=== PATIENT | female | born 1990 | race Caucasian/White ===

== ENCOUNTER 2023-02-02 06:50 | Emergency (ER) | payer OTHER, SELFPAY ==
[2023-02-02 06:51] VITALS: BP 112/67; PULSE 80; RESP 18; TEMP 37; O2SAT 100
--- NOTE | 2023-02-02 07:08 | PC.NURSE ---
Patient ambulated without difficulty to bathroom. Pt report given to next shift, YESENIA Cuello assuming care.
--- NOTE | 2023-02-02 07:14 | ED.FEMALEGU ---
HPI - Female Genitourinary General Chief complaint: Urogenital-Female Stated complaint: Urogenital Time Seen by Provider: 02/02/23 07:09 Source: patient Mode of arrival: ambulatory Limitations: no limitations History of Present Illness HPI Narrative: 32-year-old female with no significant past medical history presents to the ER with a 3 day history of -- dysuria. no hematuria -- lower back pain /right flank pain without any radiation. No fever or chills LMP 3 days ago MD elicited complaint: dysuria Onset (ago): day(s) ( symptoms started 3 days ago.) Severity: mild Vaginal discharge: none Vaginal bleeding: none Urinary symptoms: Dysuria, Urgency and Frequency Exacerbating factors: none Relieving factors: none Associated symptoms: denies other symptoms Treatment prior to arrival: none Date of Last Menstrual Period: 01/30/23 Related Data : 1 Para: 1 Home Medications Medication Instructions Recorded Confirmed Bacillus coagulans 10 billion cell See Rx Instructions .Route .COMPLEX 06/24/21 02/02/23 capsule,delayed release (Probiotic (B. coagulans)) multivitamin (Daily Multi-Vitamin 1 tablet PO DAILY 06/24/21 02/02/23 tablet) Allergies Allergy/AdvReac Type Severity Reaction Status Date / Time No Known Allergies Allergy Verified 02/02/23 07:11 Review of Systems Review of Systems: All systems reviewed & are unremarkable except as noted in HPI and below Constitutional: Constitutional: Reports as per HPI and Reports no additional constitutional complaints Eyes: Eyes: Reports as per HPI and Reports no additional eye complaints ENT: Reports system reviewed and no additional complaints, except as documented and Reports as per HPI Cardiovascular: Cardiovascular: Reports as per HPI and Reports no additional cardiovascular complaints Respiratory: Respiratory: Reports as per HPI and Reports no additional respiratory complaints Gastrointestinal: Gastrointestinal: Reports as per HPI and Reports no additional gastrointestinal complaints Genitourinary: Genitourinary: Reports no additional female genitourinary complaints, Reports nocturia and Reports urinary urgency Musculoskeletal: Musculoskeletal: Reports no additional musculoskeletal complaints and Reports as per HPI Integumentary/Breasts: Skin/Breast: Reports system reviewed and no additional complaints, except as docu and Reports as per HPI Neurologic: Reports system reviewed and no additional complaints, except as documented and Reports as per HPI Psychiatric: Psychiatric: Reports no additional psychiatric complaints and Reports as per HPI Endocrine: Endocrine: Reports no additional endocrine complaints and Reports as per HPI Hematologic/Lymphatic: Hematologic/Lymphatic: Reports no additional hematologic/lymphatic complaints and Reports as per HPI Allergic/Immunologic: Allergic/Immunologic: Reports no additional allergic/immunologic complaints and Reports as per HPI [facility] Past Medical History Medical History (Updated 02/02/23 @ 08:05 by Siva Pop MD) Vaginal delivery Surgical History Surgical History [place] teeth removed Family History Family History Grandparent Family history of malignant neoplasm of breast Social History Social History Smoking status: Never smoker Alcohol intake: never Substance use: never Exam Const: General: cooperative, healthy appearing and comfortable HENMT: Head: normal to inspection, normocephalic and atraumatic Ears: hearing grossly normal bilaterally and external ears normal Face and sinus: normal facial exam Mouth: Yes Normal oral and palatal mucosa present Throat: posterior oropharynx normal Eyes: General: appearance normal, both eyes and all related structures Neck: Neck: normal visual inspection, full ROM, no
[2023-02-02 07:20] LABS: Appearance Urine Slightly Cloudy (Clear); Bilirubin Urine Negative (Negative); Blood Urine 2+ (Negative); Color Urine Light Yellow (Yellow); Glucose Urine UA Negative (Negative); Ketones Urine Negative (Negative); Leukocyte Esterase Ur 3+ LEU/UL (Negative); Nitrate Urine Negative (Negative); Protein Urine Trace (Negative); Urobilinogen Urine 0.2 mg/dL (0.2-1.0)
[2023-02-02 07:22] LABS: Pregnancy On Board Control Positive; Urine Pregnancy Test Negative
[2023-02-02 07:26] LABS: Add Urine Microscopic? YES; Bacteria Urine 2+ /hpf; Squamous Epithelial Cell Urine Rare /hpf (Few); WBC Urine 21-50 /hpf (0-3)
[2023-02-02 08:05] VITALS: PULSE 64; RESP 100
--- NOTE | 2023-02-05 13:01 | PC.NURSE ---
Final urine culture report: Patient discharge on cipro 250mg 1 tablet q12h x 5 days, culture shows sensitivity to Cipro, no change needed per dr bay
== END 2023-02-02 08:15 | disposition home or self-care (01) ==
PROVIDERS: Emergency Provider Internal Medicine Critical Care Medicine; PCP Internal Medicine
DX: N39.0 Urinary tract infection, site not specified (principal)
CPT/HCPCS: 81001; 81025; 87077; 87086; 87088; 87186; 99283

== ENCOUNTER 2024-02-08 07:20 | Day surgery (SDC) | payer OTHER, SELFPAY ==
[2024-02-02 11:01] VITALS: BMI 20.7
[2024-02-02 11:50] VITALS: BMI 20.5
[2024-02-08 08:50] VITALS: BP 101/63; PULSE 81; RESP 16; TEMP 37.2; O2SAT 100
[2024-02-08] MEDS: LACTATED RINGERS 1,000 ML 150 ML IV CONT (09:01)
--- NOTE | 2024-02-08 09:18 | WPDHPUPDATE1 ---
History and Physical Update Update Date/Time: 02/08/24 09:18 History and Physical has been reviewed, including an updated exam of the patient. There are NO changes in the patient's condition. Risks, benefits, and alternatives have been discussed and questions answered. Patient agrees to proceed with procedure.
--- NOTE | 2024-02-08 09:39 | WPDANESEPPF ---
Anes - Initial Pre Proc Eval Procedure: Operation Date: 02/08/24 10:00 Proposed Procedures p Colonoscopy - Roberto Wilder MD Date/Time: 02/08/24 09:39 Surgeon: Roberto Wilder MD Pre Op Diagnosis: Diarrhea unspecified Patient Data Age: 33 Gender: F Height: 1.73 m Weight: 58.5 kg Last Vital Signs Temp 37.2 C 02/08/24 08:50 Pulse 81 02/08/24 08:50 Resp 16 02/08/24 08:50 BP 101/63 02/08/24 08:50 Pulse Ox 100 02/08/24 08:50 O2 Del Method Room Air 02/08/24 08:50 Allergies Allergy/AdvReac Type Severity Reaction Status Date / Time No Known Allergies Allergy Verified 02/08/24 08:40 Home Medications Medication Instructions Recorded Confirmed Type Bacillus coagulans 10 billion cell 10,000,000 cell PO DAILY 06/24/21 02/08/24 History capsule,delayed release (Probiotic (B. coagulans)) ascorbic acid (vitamin C) 500 mg 500 mg PO DAILY 02/02/24 02/08/24 History tablet ashwagandha extract 500 mg capsule 500 mg PO DAILY 02/02/24 02/08/24 History cholecalciferol (vitamin D3) 25 25 mcg PO DAILY 02/02/24 02/08/24 History mcg (1,000 unit) tablet (Vitamin D3) zinc 50 mg tablet 50 mg PO DAILY 02/02/24 02/08/24 History Patient hx anesthesia problems: none Family hx anesthesia problems: post op nausea/vomiting Results Review: All pre-operative results and documents have been reviewed as part of the pre-operative evaluation. [facility] Past Medical History Medical History Vaginal delivery Surgical History Surgical History [place] teeth removed Family History Family History Grandparent Family history of malignant neoplasm of breast Social History Social History Smoking status: Never smoker Alcohol intake: current Drinks per week: 6 Substance use: never Substance use type: does not use Lack of Transportation: No Lack of Food: Never True Current Housing: I Have Housing Concerned About Future Housing: No Difficulty Paying Gas/Electric Bills: No Difficulty Paying for Meds: No Currently Unemployed: No Living arrangements: with family Occupation/Education: occupation Gender identity (if verbalized by the patient): Female Sexual Orientation (if Verbalized by the Patient): Straight or Heterosexual Spiritual care concerns: No Anes - Eval Final PreProcedure Day of Procedure 02/08/24 09:39 Patient weight: normal Heart: regular rate and rhythm Lungs: clear to auscultation Airway: Mallampati scale class II Neurological: alert and oriented Last oral intake: >/= 8 hours ASA classification: I Emergent: no Anesthetic plan: proceed Anesthesia type and monitoring: general GIVS and standard monitoring Results Review: All pre-operative results and documents have been reviewed as part of the pre-operative evaluation. Informed Consent: The patient's anesthetic plan and its attendant risks and benefits were discussed with the patient/family/POA. Questions were solicited and answers provided to the satisfaction of the patient/family/POA.
[2024-02-08 10:20] VITALS: BP 91/55; PULSE 85; RESP 14; O2SAT 100
[2024-02-08 10:30] VITALS: BP 82/70; PULSE 78; RESP 14; O2SAT 100
[2024-02-08 10:40] VITALS: BP 99/65; PULSE 80; RESP 16; O2SAT 100
--- NOTE | 2024-02-08 11:43 | WPDANESPN ---
Anes - Prog Note Post-Op Date/Time: 02/08/24 11:43 Cardiovascular status: normal Respiratory status: normal Airway patency: baseline Mental status: baseline Post-Op hydration status: normal Vital Signs: Last Vital Signs Temp 37.2 C 02/08/24 08:50 Pulse 80 02/08/24 10:40 Resp 16 02/08/24 10:40 BP 99/65 L 02/08/24 10:40 Pulse Ox 100 02/08/24 10:40 O2 Del Method Room Air 02/08/24 10:40 Pain Score (VAS): 0 I/O: Intake & Output 02/07/24 02/08/24 02/08/24 23:59 07:59 15:59 Intake Total 750 Balance 750 Patient Feedback: Patient satisfied with anesthetic care.
== END 2024-02-08 10:51 | disposition home or self-care (01) ==
PROVIDERS: PCP Internal Medicine; Visit Provider Internal Medicine Gastroenterology
PROC: 0DJD8ZZ Inspection of Lower Intestinal Tract, Via Natural or Artificial Opening Endoscopic (ICD-10-PCS; CPT 45378; principal; 2024-02-08 10:00)
DX: R19.7 Diarrhea, unspecified (principal); K64.8 Other hemorrhoids
CPT/HCPCS: 45380

== ENCOUNTER 2024-02-08 10:17 | Outpatient (NON) | payer OTHER, SELFPAY | END 2024-02-08 10:18 | disposition home or self-care (01) | PROVIDERS: PCP Internal Medicine; Visit Provider Internal Medicine Gastroenterology | DX: R19.7 Diarrhea, unspecified (principal) | CPT/HCPCS: 88305 ==

== ENCOUNTER 2024-08-15 08:01 | Outpatient (CLI) | payer OTHER, SELFPAY ==
[2024-08-15 08:18] LABS: Hematocrit 37.7 % (35.0-49.0); Hemoglobin 12.7 g/dL (12.0-15.0); Mean Corpuscular HGB Conc 33.7 g/dL (32-36); Mean Corpuscular Hemoglobin 30.4 pg (27.0-31.0); Mean Corpuscular Volume 90.2 fL (78.0-102.0); Mean Platelet Volume 9.4 fl (9.2-11.8); Platelet Count Result 334 K/mm3 (150-420); Red Blood Count 4.18 M/mm3 (4.20-5.40); Red Cell Distribution Width 12.1 % (11.6-14.4); White Blood Count 4.5 K/mm3 (4.8-10.8)
[2024-08-15 08:52] LABS: Alanine Aminotransferase 23 U/L (14-59); Alkaline Phosphatase 59 U/L (46-116); Anion Gap 9 mmol/L (4-12); Aspartate Amino Transferase 14 U/L (15-37); Bilirubin,Total 0.4 mg/dL (0.00-1.00); Blood Urea Nitrogen 11 mg/dL (7-18); Carbon Dioxide 30 mmol/L (21-32); Chloride 101 mmol/L (98-108); Estimated Glomerular Filt Rate > 60; Glucose 87 mg/dL (70-99); Osmolality Calculated 288 mOsm/kg (285-295); Potassium 3.8 mmol/L (3.5-5.1); Sodium 140 mmol/L (136-145); Total Protein 7.4 g/dL (6.4-8.2)
[2024-08-15 08:57] LABS: Thyroid Stimulating Hormone Reflex 1.84 u/IU/mL (0.36-3.74)
[2024-08-15 08:58] LABS: CRP < 0.5 mg/dL (0.0-0.9)
[2024-08-15 09:28] LABS: Erythrocyte Sedimentation Rate 18 mm/hr (0-15)
[2024-08-15 12:09] LABS: Toxigenic C. Diff NEGATIVE (NEGATIVE)
[2024-08-19 03:34] LABS: Immunoglobulin A 225 mg/dL (47-310); TTG IGA AB <1.0 U/mL
== END 2024-08-15 08:02 | disposition home or self-care (01) ==
LOC: CHSLAB 08:03
PROVIDERS: PCP Internal Medicine; Visit Provider Nurse Practitioner
DX: K52.832 Lymphocytic colitis (principal); K52.9 Noninfective gastroenteritis and colitis, unspecified
CPT/HCPCS: 36415; 80053; 82784; 83516; 83993; 84443; 85027; 85652; 86140; 87045; 87269; 87427; 87449; 87493

== ENCOUNTER 2024-10-04 00:59 | Day surgery (SDC) | payer OTHER, SELFPAY ==
[2024-10-03 15:16] VITALS: BMI 20.4
[2024-10-04 13:40] VITALS: BP 109/59; PULSE 71; RESP 16; TEMP 36.3; O2SAT 99; BMI 19.8
[2024-10-04 13:45] LABS: BEDSIDEPREGUCG Negative (Negative)
[2024-10-04] MEDS: LACTATED RINGERS 1,000 ML 150 ML IV CONT (13:49)
--- NOTE | 2024-10-04 13:55 | WPDANESEPPF ---
Anes - Initial Pre Proc Eval Procedure: Operation Date: 10/04/24 15:00 Proposed Procedures p Flexible Sigmoidoscopy - Dk Gallego MD Date/Time: 10/04/24 13:55 Surgeon: Dk Gallego MD Pre Op Diagnosis: lymphocytic colitis, fecal abn, gastroenteritis Patient Data Age: 33 Gender: F Height: 1.73 m Weight: 59.1 kg Last Vital Signs Temp 36.3 C L 10/04/24 13:40 Pulse 71 10/04/24 13:40 Resp 16 10/04/24 13:40 BP 109/59 L 10/04/24 13:40 Pulse Ox 99 10/04/24 13:40 O2 Del Method Room Air 10/04/24 13:40 Allergies Allergy/AdvReac Type Severity Reaction Status Date / Time No Known Allergies Allergy Verified 10/04/24 13:36 Home Medications ?Medication ?Instructions ?Recorded ?Confirmed ?Type Bacillus coagulans 10 billion cell 10,000,000 cell PO DAILY 06/24/21 10/03/24 History capsule,delayed release (Probiotic (B. coagulans)) ascorbic acid (vitamin C) 500 mg 500 mg PO DAILY 02/02/24 10/03/24 History tablet ashwagandha extract 500 mg capsule 500 mg PO DAILY 02/02/24 10/03/24 History cholecalciferol (vitamin D3) 25 25 mcg PO DAILY 02/02/24 10/03/24 History mcg (1,000 unit) tablet (Vitamin D3) zinc 50 mg tablet 50 mg PO DAILY 02/02/24 10/03/24 History budesonide 3 mg 6 mg PO DAILY 10/03/24 10/04/24 History capsule,delayed,extended release Laboratory Tests 10/04/24 13:40 POC Urine HCG, Qual Negative (Negative) Patient hx anesthesia problems: none Family hx anesthesia problems: none Results Review: All pre-operative results and documents have been reviewed as part of the pre-operative evaluation. [facility] Past Medical History Medical History Vaginal delivery Surgical History Surgical History [place] teeth removed Family History Family History Grandparent Family history of malignant neoplasm of breast Social History Social History Smoking status: Never smoker Alcohol intake: current Drinks per week: 3 Substance use: never Substance use type: does not use Lack of Transportation: No Lack of Food: Never True Current Housing: I Have Housing Concerned About Future Housing: No Difficulty Paying Gas/Electric Bills: No Difficulty Paying for Meds: No Currently Unemployed: No Living arrangements: with family Occupation/Education: occupation Gender identity (if verbalized by the patient): Female Sexual Orientation (if Verbalized by the Patient): Straight or Heterosexual Spiritual care concerns: No Anes - Eval Final PreProcedure Day of Procedure 10/04/24 13:55 Patient weight: normal Heart: regular rate and rhythm Lungs: clear to auscultation Airway: Mallampati scale class II Neurological: alert and oriented Last oral intake: >/= 8 hours ASA classification: II Emergent: no Anesthetic plan: proceed Anesthesia type and monitoring: general GIVS and standard monitoring Results Review: All pre-operative results and documents have been reviewed as part of the pre-operative evaluation. Informed Consent: The patient's anesthetic plan and its attendant risks and benefits were discussed with the patient/family/POA. Questions were solicited and answers provided to the satisfaction of the patient/family/POA.
--- NOTE | 2024-10-04 14:00 | WPDHPUPDATE1 ---
History and Physical Update Update Date/Time: 10/04/24 14:00 History and Physical has been reviewed, including an updated exam of the patient. There are NO changes in the patient's condition. Risks, benefits, and alternatives have been discussed and questions answered. Patient agrees to proceed with procedure.
[2024-10-04 14:12] VITALS: BP 102/52; PULSE 80; RESP 15; O2SAT 100
[2024-10-04 14:22] VITALS: BP 98/65; PULSE 83; RESP 17; O2SAT 100
[2024-10-04 14:32] VITALS: BP 107/64; PULSE 72; RESP 19; O2SAT 100
== END 2024-10-04 14:34 | disposition home or self-care (01) ==
PROVIDERS: Anesthesiology; PCP Internal Medicine; Referring Provider Nurse Practitioner; Visit Provider Internal Medicine Gastroenterology
PROC: 0DJD8ZZ Inspection of Lower Intestinal Tract, Via Natural or Artificial Opening Endoscopic (ICD-10-PCS; CPT 45330; principal; 2024-10-04 15:00)
DX: Z09 Encounter for follow-up examination after completed treatment for conditions other than malignant neoplasm (principal); K51.814 Other ulcerative colitis with abscess; Z98.890 Other specified postprocedural states; Z80.3 Family history of malignant neoplasm of breast
CPT/HCPCS: 45331; 88305; J2003; J2704; J7120

== ENCOUNTER 2024-12-12 08:00 | Outpatient (CLI) | payer OTHER, SELFPAY ==
--- OUTSIDE RECORDS SUMMARY | 2024-12-12 08:09 | XMS_ITS | Clinical Summary ---
Author Organization [employer] [address] - [address] [facility] [address] [place] [address] Phone Care Team Providers Care Special Education Professor Name Role Phone Rebeca Brandon MD Primary Care Provider + Social History Tobacco Use Types Packs/Day Years Used Date Smoking Tobacco: Never Assessed Comments Unknown Sex and Gender Information Value Date Recorded Sex Assigned at Not on file Legal Sex Female 9:06 AM CDT Gender Identity Not on file Sexual Orientation Not on file Plan of Treatment Health Maintenance Due Date Last Done Comments DTAP/TDAP/TD VACCINES (1 - Tdap) 2008 HEPATITIS B VACCINES (1 of 3 - 19+ 3-dose series) 2008 CERVICAL CANCER SCREENING 12/20/2019 INFLUENZA VACCINE (#1) 2024 HPV VACCINES Aged Out No longer eligi ble based on patient's age to complete this topic PNEUMOCOCCAL VACCINE 0-49 YEARS Aged Out No longer eligible based on patient's age to complete this topic Insurance [facility] [id number] [employer] HMO Care Teams Special Education Professor Relationship Specialty Start Date End Date Rebeca Brandon MD [address] [place] [address] PCP - General Internal Medicine 03/18/17
--- OUTSIDE RECORDS SUMMARY | 2024-12-12 08:09 | XMS_ITS | Continuity of Care Document ---
Author Organization [facility] Address [address] [place] [address] Phone Care Team Providers Care Certified Lactation Educator Name Role Phone Unavailable Unavailable Unavailable Advance Directives Directive Yes / No Effective Date File Name No Information Encounters Encounter Description Practice Location Reason(s) For Visit Diagnoses Date Provider Providers Copied on Encounter [facility], [address] [facility], [place], [place], [id number], tel:[phone] [facility] No Information No Information Referring Provider: [facility] [address], [place], [address]. tel:[phone] Family History Family Member Type Diagnosis Age At Onset No Information Payers Payer name Insurance type Covered constitution party ID Authoriza tibelle(s) [facility] PPO [id number] CI [id number] [facility] [id number] CI [id number] Social History Type Description Quantity Date Captured Comments Sex Female Smoking Status No Information Chief Complaint And Reason For Visit No Information History Of Present Illness Encounter Date Complaint History Of Prese nt Illness No Information Instructions Date Instruction Additional Infor mation No Information Assessments Type Assessment Date No Information
[2024-12-12 08:16] LABS: Hematocrit 39.5 % (35.0-49.0); Hemoglobin 12.7 g/dL (12.0-15.0); Mean Corpuscular HGB Conc 32.2 g/dL (32-36); Mean Corpuscular Hemoglobin 29.3 pg (27.0-31.0); Mean Platelet Volume 9.3 fl (9.2-11.8); Platelet Count Result 322 K/mm3 (150-420); Red Blood Count 4.34 M/mm3 (4.20-5.40); Red Cell Distribution Width 12.1 % (11.6-14.4); White Blood Count 4.2 K/mm3 (4.8-10.8)
[2024-12-12 08:45] LABS: Alanine Aminotransferase 25 U/L (14-59); Alkaline Phosphatase 67 U/L (46-116); Anion Gap 10 mmol/L (4-12); Aspartate Amino Transferase 14 U/L (15-37); Bilirubin,Total 0.4 mg/dL (0.00-1.00); Blood Urea Nitrogen 16 mg/dL (7-18); Calcium 8.8 mg/dL (8.5-10.1); Carbon Dioxide 28 mmol/L (21-32); Chloride 104 mmol/L (98-108); Estimated Glomerular Filt Rate > 60; Glucose 88 mg/dL (70-99); Osmolality Calculated 294 mOsm/kg (285-295); Sodium 142 mmol/L (136-145); Total Protein 7.3 g/dL (6.4-8.2)
[2024-12-12 09:17] LABS: Erythrocyte Sedimentation Rate 18 mm/hr (0-15)
== END 2024-12-12 08:01 | disposition home or self-care (01) ==
PROVIDERS: PCP Internal Medicine; Visit Provider Nurse Practitioner
DX: K52.9 Noninfective gastroenteritis and colitis, unspecified (principal); R19.5 Other fecal abnormalities; R70.0 Elevated erythrocyte sedimentation rate
CPT/HCPCS: 36415; 80053; 83993; 85027; 85652